=== PATIENT | male | born 1975 | race Caucasian/White ===

== ENCOUNTER 2019-04-30 22:13 | Inpatient (IN) | payer OTHER ==
[~2019-04-30] VITALS: Ht 185.4 cm; Wt 121.3 kg
[2019-04-30 21:47] VITALS: BP 138/77
[2019-04-30] MEDS: SODIUM CHLORIDE 0.9% 1,000 ML IV SCH (23:08)
[2019-04-30] MEDS ORDERED: KETOROLAC 30 MG/1 ML ONE (23:26)
[2019-04-30] MEDS ORDERED: ACETAMINOPHEN 325 MG TABLET ONE (23:26)
[2019-04-30] MEDS ORDERED: PLEASE ENTER ALLERGIES MC SCH (23:30)
[2019-04-30] MEDS ORDERED: POLYETHYLENE GLYCOL 17 GM PACKET PO PRN (23:30)
[2019-04-30] MEDS ORDERED: VANCOMYCIN PER PHARMACY MC PRN (23:30)
[2019-04-30] MEDS ORDERED: KETOROLAC 30 MG/1 ML IM PRN (23:30)
[2019-04-30] MEDS ORDERED: BISACODYL 10 MG SUPP PR PRN (23:30)
[2019-04-30] MEDS ORDERED: [UNRECOGNIZED DRUG - REMARK] MC SCH (23:30)
[2019-04-30] MEDS ORDERED: ONDANSETRON 2MG/ML, 2ML IVPush PRN (23:30)
[2019-04-30] MEDS: ACETAMINOPHEN 325 MG TABLET PO PRN (23:31)
[2019-04-30] MEDS ORDERED: VANCOMYCIN 2,300 MG in SODIUM CHLORIDE 0.9% 500 ML IV ONE (23:45)
[2019-05-01] MEDS: morphine SULFATE 10 MG/ML, 1ML IVPush PRN ×3 (00:01→20:52)
[2019-05-01] MEDS: INSULIN LISPRO 100 UNITS/ML, PEN SQ-INSULIN SCH ×5 (00:01→20:21)
[2019-05-01] MEDS: HEPARIN 5,000 UNITS/ML, 1ML SQ SCH ×3 (00:01→16:54)
[2019-05-01] MEDS: CEFTRIAXONE PMX 2GM/50ML 50 ML IV SCH ×3 (00:02→23:30)
[2019-05-01 00:24] LABS: HEMOGLOBIN A1C 7.2 % (4.2-6.3)
[2019-05-01] MEDS ORDERED: VANCOMYCIN 1,400 MG in SODIUM CHLORIDE 0.9% 250 ML IV ONE (00:30)
[2019-05-01 03:47] LABS: MEAN CORPUSCULAR HEMOGLOBIN 30.5 pg (27.5-34.5); MEAN CORPUSCULAR HGB CONC 33.6 g/dL (33.2-36.2); MEAN CORPUSCULAR VOLUME 90.8 fL (81-97); PLATELET COUNT 238 x10^3/uL (130-400); RED BLOOD COUNT 4.32 x10^6/uL (4.38-5.82); RED CELL DISTRIBUTION WIDTH 13.1 % (9.4-14.8)
[2019-05-01 03:51] LABS: ALANINE AMINOTRANSFERASE 16 U/L (12-78); ALBUMIN 2.9 g/dL (3.4-5.0); ANION GAP 8 mmol/L (5-15); CALCIUM 8.6 mg/dL (8.5-10.1); CHLORIDE 99 mmol/L (98-107); CREATININE 1.25 mg/dL (0.7-1.3)
[2019-05-01 03:54] LABS: ALKALINE PHOSPHATASE 59 U/L (45-117); BILIRUBIN,TOTAL 1.4 mg/dL (0.2-1.0); TOTAL PROTEIN 7.2 g/dL (6.4-8.2)
[2019-05-01] MEDS ORDERED: ATOR20TA86 PO (04:58)
[2019-05-01] MEDS ORDERED: ALLO300T PO (04:58)
[2019-05-01] MEDS ORDERED: PRAM0.5T PO (04:58)
[2019-05-01] MEDS ORDERED: CARV12.5 PO (04:58)
[2019-05-01] MEDS ORDERED: METF10007 PO (04:58)
[2019-05-01] MEDS ORDERED: AMLO5TAB10 PO (04:58)
[2019-05-01 05:49] LABS: BASOPHILS # (AUTO) 0.01 x10^3/uL (0-0.1); BASOPHILS % (AUTO) 0 % (0-1); EOSINOPHILS % (AUTO) 0 % (1-7); LYMPHOCYTES # (AUTO) 1.89 x10^3/uL (1-3.4); LYMPHOCYTES % (AUTO) 15 % (22-44); MD SCAN; MONOCYTES # (AUTO) 1.43 x10^3/uL (0.2-0.8); MONOCYTES % (AUTO) 11 % (2-9); NEUTROPHILS # (AUTO) 9.43 x10^3/uL (1.8-6.8); NEUTROPHILS % (AUTO) 74 % (42-75)
[2019-05-01] MEDS: SODIUM CHLORIDE 0.9% 1,000 ML IV SCH ×3 (06:20→23:30)
[2019-05-01 07:50] VITALS: BP 141/83
[2019-05-01] MEDS: KETOROLAC 30 MG/1 ML IV PRN ×2 (09:47→17:00)
[2019-05-01] MEDS: SENNA/DOCUSATE TABLET PO SCH (09:48)
[2019-05-01] MEDS: VANCOMYCIN 2,000 MG in SODIUM CHLORIDE 0.9% 500 ML IV SCH (12:13)
[2019-05-01 13:37] VITALS: BP 156/93
[2019-05-01 19:16] VITALS: BP 143/89
[2019-05-01] MEDS: ACETAMINOPHEN 325 MG TABLET PO PRN (20:52)
[2019-05-02] MEDS: VANCOMYCIN 2,000 MG in SODIUM CHLORIDE 0.9% 500 ML IV SCH ×2 (00:14→11:51)
[2019-05-02] MEDS ORDERED: ERGOCALCIFEROL 50,000 UNIT CAPSULE PO SCH (01:00)
[2019-05-02] MEDS: HEPARIN 5,000 UNITS/ML, 1ML SQ SCH ×3 (03:07→19:53)
[2019-05-02] MEDS: KETOROLAC 30 MG/1 ML IV PRN ×3 (03:18→21:38)
[2019-05-02] MEDS: ACETAMINOPHEN 325 MG TABLET PO PRN (03:18)
[2019-05-02 03:28] VITALS: BP 152/66
[2019-05-02 05:19] LABS: MEAN CORPUSCULAR HEMOGLOBIN 30.6 pg (27.5-34.5); MEAN CORPUSCULAR HGB CONC 33.6 g/dL (33.2-36.2); MEAN CORPUSCULAR VOLUME 91.1 fL (81-97); MEAN PLATELET VOLUME 7.4 fL (7.4-10.4); PLATELET COUNT 241 x10^3/uL (130-400); RED BLOOD COUNT 3.83 x10^6/uL (4.38-5.82); RED CELL DISTRIBUTION WIDTH 12.8 % (9.4-14.8)
[2019-05-02 05:32] LABS: CHLORIDE 103 mmol/L (98-107)
[2019-05-02 05:36] LABS: ALANINE AMINOTRANSFERASE 9 U/L (12-78); ALBUMIN 2.4 g/dL (3.4-5.0); ALKALINE PHOSPHATASE 51 U/L (45-117); ANION GAP 8 mmol/L (5-15); BILIRUBIN,TOTAL 0.8 mg/dL (0.2-1.0); CALCIUM 7.9 mg/dL (8.5-10.1); CREATININE 0.78 mg/dL (0.7-1.3); TOTAL PROTEIN 6.5 g/dL (6.4-8.2)
[2019-05-02 05:49] LABS: BASOPHILS # (AUTO) 0.03 x10^3/uL (0-0.1); BASOPHILS % (AUTO) 0 % (0-1); EOSINOPHILS # (AUTO) 0.03 x10^3/uL (0-0.4); EOSINOPHILS % (AUTO) 0 % (1-7); LYMPHOCYTES # (AUTO) 1.42 x10^3/uL (1-3.4); LYMPHOCYTES % (AUTO) 15 % (22-44); MD SCAN; MONOCYTES # (AUTO) 0.87 x10^3/uL (0.2-0.8); MONOCYTES % (AUTO) 10 % (2-9); NEUTROPHILS # (AUTO) 6.84 x10^3/uL (1.8-6.8); NEUTROPHILS % (AUTO) 75 % (42-75)
[2019-05-02 07:22] VITALS: BP 137/83
[2019-05-02] MEDS: INSULIN LISPRO 100 UNITS/ML, PEN SQ-INSULIN SCH ×4 (08:08→20:04)
[2019-05-02] MEDS: SODIUM CHLORIDE 0.9% 1,000 ML IV SCH ×2 (08:08→17:13)
[2019-05-02] MEDS: SENNA/DOCUSATE TABLET PO SCH (08:08)
[2019-05-02] MEDS: CEFTRIAXONE PMX 2GM/50ML 50 ML IV SCH ×2 (11:01→23:41)
[2019-05-02 13:09] VITALS: BP 133/74
[2019-05-02] MEDS ORDERED: MAGNESIUM SULFATE PMX 4GM/100M 100 ML IV ONE (18:00)
[2019-05-02] MEDS: morphine SULFATE 10 MG/ML, 1ML IVPush PRN (19:53)
[2019-05-02] MEDS: POTASSIUM PHOSPHATE 44 MEQ in SODIUM CHLORIDE 0.9% 500 ML IV SCH (19:55)
[2019-05-02] MEDS: TRAZODONE 150MG TABLET PO PRN (20:24)
[2019-05-02] MEDS ORDERED: PRAMIPEXOLE 0.5MG TABLET PO SCH (21:00)
[2019-05-02 21:24] VITALS: BP 134/72
[2019-05-03] MEDS: SODIUM CHLORIDE 0.9% 1,000 ML IV SCH ×4 (00:39→23:37)
[2019-05-03] MEDS: VANCOMYCIN 2,000 MG in SODIUM CHLORIDE 0.9% 500 ML IV SCH ×2 (00:39→12:13)
[2019-05-03] MEDS: morphine SULFATE 10 MG/ML, 1ML IVPush PRN ×5 (01:14→15:36)
[2019-05-03] MEDS: HEPARIN 5,000 UNITS/ML, 1ML SQ SCH ×3 (02:16→20:39)
[2019-05-03 02:23] VITALS: BP 144/83
[2019-05-03 05:49] LABS: CHLORIDE 105 mmol/L (98-107)
[2019-05-03 05:53] LABS: ANION GAP 9 mmol/L (5-15); CALCIUM 7.9 mg/dL (8.5-10.1)
[2019-05-03] MEDS: POTASSIUM PHOSPHATE 44 MEQ in SODIUM CHLORIDE 0.9% 500 ML IV SCH (06:19)
[2019-05-03 07:59] VITALS: BP 148/86
[2019-05-03] MEDS: INSULIN LISPRO 100 UNITS/ML, PEN SQ-INSULIN SCH ×4 (07:59→20:40)
[2019-05-03] MEDS: SENNA/DOCUSATE TABLET PO SCH (08:08)
[2019-05-03] MEDS: CEFTRIAXONE PMX 2GM/50ML 50 ML IV SCH ×2 (11:40→23:36)
[2019-05-03 13:33] VITALS: BP 167/93
[2019-05-03] MEDS: KETOROLAC 30 MG/1 ML IV PRN ×2 (14:11→20:47)
[2019-05-03] MEDS ORDERED: GADOBUTROL 15 MMOL/15 ML VIAL ONE (16:42)
[2019-05-03] MEDS ORDERED: PRAMIPEXOLE 0.5MG TABLET PO SCH (17:00)
[2019-05-03 20:22] VITALS: BP 158/80
[2019-05-03] MEDS: PRAMIPEXOLE 0.5MG TABLET PO SCH (20:39)
[2019-05-03] MEDS: TRAZODONE 150MG TABLET PO PRN (20:46)
[2019-05-03 23:55] VITALS: BP 147/76
[2019-05-04] MEDS: VANCOMYCIN 2,000 MG in SODIUM CHLORIDE 0.9% 500 ML IV SCH (00:23)
[2019-05-04] MEDS: KETOROLAC 30 MG/1 ML IV PRN ×4 (03:03→22:59)
[2019-05-04] MEDS: SODIUM CHLORIDE 0.9% 1,000 ML IV SCH ×2 (04:46→11:19)
[2019-05-04] MEDS: HEPARIN 5,000 UNITS/ML, 1ML SQ SCH ×3 (04:46→20:03)
[2019-05-04 07:56] VITALS: BP 161/96
[2019-05-04] MEDS: INSULIN LISPRO 100 UNITS/ML, PEN SQ-INSULIN SCH ×4 (08:20→20:03)
[2019-05-04] MEDS: SENNA/DOCUSATE TABLET PO SCH (08:21)
[2019-05-04] MEDS: CEFTRIAXONE PMX 2GM/50ML 50 ML IV SCH (11:19)
[2019-05-04] MEDS: LISINOPRIL 10 MG TABLET PO SCH ×2 (11:20→20:03)
[2019-05-04] MEDS ORDERED: ERGOCALCIFEROL 50,000 UNIT CAPSULE PO SCH (11:30)
[2019-05-04] MEDS ORDERED: AZITHROMYCIN 500 MG TABLET PO ONE (13:00)
[2019-05-04 13:08] VITALS: BP 156/89
[2019-05-04 18:57] VITALS: BP 144/85
[2019-05-04] MEDS: PRAMIPEXOLE 0.5MG TABLET PO SCH (20:02)
[2019-05-04] MEDS: TRAZODONE 150MG TABLET PO PRN (22:59)
[2019-05-05 02:27] VITALS: BP 155/86
[2019-05-05] MEDS: HEPARIN 5,000 UNITS/ML, 1ML SQ SCH ×3 (04:27→20:26)
[2019-05-05] MEDS: KETOROLAC 30 MG/1 ML IV PRN ×3 (05:51→20:25)
[2019-05-05 07:53] VITALS: BP 161/97
[2019-05-05] MEDS: LISINOPRIL 10 MG TABLET PO SCH ×2 (08:59→20:26)
[2019-05-05] MEDS: CEFTRIAXONE PMX 2GM/50ML 50 ML IV SCH (08:59)
[2019-05-05] MEDS: INSULIN LISPRO 100 UNITS/ML, PEN SQ-INSULIN SCH ×4 (08:59→20:27)
[2019-05-05] MEDS: SENNA/DOCUSATE TABLET PO SCH (08:59)
[2019-05-05 12:56] VITALS: BP 175/107
[2019-05-05] MEDS ORDERED: GADOBUTROL 10 MMOL/10 ML PFS ONE (14:37)
[2019-05-05] MEDS ORDERED: MORPHINE SULFATE 4 MG/ML, 1ML ONE (15:58)
[2019-05-05 16:05] LABS: INTERNATIONAL NORMALIZED RATIO 0.97 (0.93-1.1); PROTHROMBIN TIME 10.2 Seconds (9.6-11.5)
[2019-05-05] MEDS: morphine SULFATE 10 MG/ML, 1ML IVPush PRN (16:13)
[2019-05-05 20:16] VITALS: BP 173/107
[2019-05-05] MEDS: PRAMIPEXOLE 0.5MG TABLET PO SCH (20:26)
[2019-05-05] MEDS: TRAZODONE 150MG TABLET PO PRN (20:46)
[2019-05-05] MEDS: ACETAMINOPHEN 325 MG TABLET PO PRN (20:46)
[2019-05-05 22:32] VITALS: BP 130/79
[2019-05-06 01:03] VITALS: BP 162/82
[2019-05-06] MEDS: HEPARIN 5,000 UNITS/ML, 1ML SQ SCH ×3 (04:36→20:54)
[2019-05-06] MEDS: KETOROLAC 30 MG/1 ML IV PRN (04:36)
[2019-05-06] MEDS: ACETAMINOPHEN 325 MG TABLET PO PRN (04:36)
[2019-05-06 06:51] VITALS: BP 158/94
[2019-05-06] MEDS: SENNA/DOCUSATE TABLET PO SCH (09:00)
[2019-05-06] MEDS: LISINOPRIL 10 MG TABLET PO SCH ×2 (09:38→20:55)
[2019-05-06] MEDS: CEFTRIAXONE PMX 2GM/50ML 50 ML IV SCH (09:38)
[2019-05-06] MEDS: INSULIN LISPRO 100 UNITS/ML, PEN SQ-INSULIN SCH ×4 (09:39→20:54)
[2019-05-06 12:38] VITALS: BP 151/81
[2019-05-06] MEDS: morphine SULFATE 10 MG/ML, 1ML IVPush PRN ×3 (13:10→20:55)
[2019-05-06] MEDS ORDERED: FENTANYL 25 MCG PATCH TD SCH (18:00)
[2019-05-06 20:06] VITALS: BP 174/88
[2019-05-06] MEDS: PRAMIPEXOLE 0.5MG TABLET PO SCH (20:54)
[2019-05-06] MEDS: TRAZODONE 150MG TABLET PO PRN (20:54)
[2019-05-07 01:10] VITALS: BP 159/90
[2019-05-07] MEDS: morphine SULFATE 10 MG/ML, 1ML IVPush PRN ×4 (01:19→12:52)
[2019-05-07] MEDS: HEPARIN 5,000 UNITS/ML, 1ML SQ SCH ×2 (04:08→12:43)
[2019-05-07] MEDS: ACETAMINOPHEN 325 MG TABLET PO PRN (04:36)
[2019-05-07] MEDS: INSULIN LISPRO 100 UNITS/ML, PEN SQ-INSULIN SCH ×3 (07:22→15:39)
[2019-05-07 08:27] VITALS: BP_SYST 154; BP_SYST 169; BP_DIAS 83; BP_DIAS 91
[2019-05-07] MEDS: CEFTRIAXONE PMX 2GM/50ML 50 ML IV SCH (08:51)
[2019-05-07] MEDS: SENNA/DOCUSATE TABLET PO SCH (08:52)
[2019-05-07] MEDS: LISINOPRIL 10 MG TABLET PO SCH (08:52)
[2019-05-07] MEDS ORDERED: IBUP-1222 PO (11:30)
[2019-05-07] MEDS ORDERED: ERGO500017 PO (11:30)
[2019-05-07] MEDS ORDERED: CEFT1FRO2 IV (11:30)
[2019-05-07] MEDS ORDERED: GLIM1TAB PO (11:30)
[2019-05-07] MEDS ORDERED: ACET325T26 PO (11:30)
[2019-05-07 13:24] VITALS: BP 156/61
== END 2019-05-07 18:20 | disposition home or self-care (01) | DRG 872 ==
LOC: 4WST 22:13 → DCLOUNGE 05-07 16:35
PROVIDERS: ADMIT Internal Medicine; ATTEND Internal Medicine
PROC: 02HV33Z Insertion of Infusion Device into Superior Vena Cava, Percutaneous Approach (ICD-10-PCS; principal; 2019-05-05)
PROC: B5181ZA Fluoroscopy of Superior Vena Cava using Low Osmolar Contrast, Guidance (ICD-10-PCS; 2019-05-05)
PROC: B548ZZA Ultrasonography of Superior Vena Cava, Guidance (ICD-10-PCS; 2019-05-05)
DX: A41.9 Sepsis, unspecified organism (principal); A54.42 Gonococcal arthritis; M00.9 Pyogenic arthritis, unspecified; E11.9 Type 2 diabetes mellitus without complications; E66.01 Morbid (severe) obesity due to excess calories; Z68.35 Body mass index [BMI] 35.0-35.9, adult; E83.39 Other disorders of phosphorus metabolism; E83.42 Hypomagnesemia; I10 Essential (primary) hypertension; M10.9 Gout, unspecified; M48.02 Spinal stenosis, cervical region; M50.222 Other cervical disc displacement at C5-C6 level; M65.9 Synovitis and tenosynovitis, unspecified; M75.00 Adhesive capsulitis of unspecified shoulder; Z98.84 Bariatric surgery status
CPT/HCPCS: 36415; 36573; 80048; 80053; 80202; 82306; 82550; 82962; 83036; 83735; 84100; 84443; 85025; 85610; 85651; 86038; 86140; 86430; 86592; 87040; 87491; 87591; 87806; A9585; G0378; J0696; J1644; J1885; J3370; C1751; G0475; J1815; J2270; J3475; J7030; J7040; J7050